=== PATIENT | female | born 1995 | race Caucasian/White ===

== ENCOUNTER 2018-06-09 11:46 | Inpatient (IN) | payer OTHER ==
[2018-06-09] MEDS ORDERED: Mouth Piece, Nicotine* 1 EACH CARTRIDGE INH PRN (11:58)
[2018-06-09] MEDS ORDERED: Nicotine Inhaler* 10 MG AMP INH PRN ×2 (11:58→14:03)
--- NOTE | 2018-06-09 11:58 | ED ---
Psychiatric Complaint - HPI Summary HPI Summary: This pt is a 23 y/o female [facility] c/o worsening anxiety and depression since 1 month ago. Pt reports "I just have a lot of going on." Pt notes she stopped taking her medications within the last week because she read the side effect were increased depression. Her medications were Trazodone and Citalapram, both prescribed by her PCP. Pt denies SI or HI thoughts/plan. Pt states she has not been sleeping much during the night, just a few hours. Additionally reports decreased appetite and weight loss. Pt has a job and has 2 children. Mom states "she doesn't enjoy her kids anymore. " Denies any other PMHx. There are no other medications she takes. Pt denies tobacco and alcohol use, but admits to using meth a couple of weeks ago. - History Of Current Complaint Chief Complaint: EDMentalHealth Hx Obtained From: Patient, Family/Lead Radiologic Technologist - Mother Onset/Duration: Lasting Weeks, Still Present Timing: Weeks Severity Currently: Severe Character: Depressed, Anxious Aggravating Factor(s): Recent Stress, Medication Non-compliance Alleviating Factor(s): Nothing Associated Signs And Symptoms: Positive: Sleep Disturbance, Appetite Change Has Suicidal: Denies: Thoughts, With A Plan Has Homicidal: Denies: Thoughts, With A Plan Recent Stressor(s): "a lot going on" - Allergies/Home Medications Allergies/Adverse Reactions: Allergies Allergy/AdvReac Type Severity Reaction Status Date / Time Penicillins Allergy Hives Verified 06/09/18 11:50 Home Medications: Home Medications NK [No Home Medications Reported] 06/09/18 [History Confirmed 06/09/18] PMH/Surg Hx/FS Hx/Imm Hx Endocrine/Hematology History: Denies: Hx Diabetes Cardiovascular History: Denies: Hx Hypertension Psychiatric History: Reports: Hx Anxiety, Hx Depression - Surgical History Surgery Procedure, Year, and Place: none Infectious Disease History: No Infectious Disease History: Denies: Traveled Outside the [place] in Last 30 Days - Family History Known Family History: Positive: Cardiac Disease, Hypertension, Diabetes Family History: Maternal grandfather with lung CA. Maternal grandfather was smoker. Ovarian CA. Breast CA. Anxiety. - Social History Alcohol Use: None Substance Use Comment - Amount & Last Used: Used meth a couple of weeks ago. None since then. Smoking Status (MU): Never Smoked Tobacco Review of Systems Constitutional: Other - POS: sleep disturbance, weight loss Negative: Fever, Chills Cardiovascular: Negative Respiratory: Negative Gastrointestinal: Negative Positive: Anxious, Depressed. Negative: Other - SI or HI thoughts/plan All Other Systems Reviewed And Are Negative: Yes Physical Exam - Summary Physical Exam Summary: VITAL SIGNS: Reviewed. GENERAL: Patient is a well-developed and nourished female. Patient is not in any acute respiratory distress. HEAD AND FACE: No signs of trauma. No ecchymosis, hematomas or skull depressions. No sinus tenderness. EYES: PERRLA, EOMI x 2, No injected conjunctiva, no nystagmus. EARS: Hearing grossly intact. Ear canals and tympanic membranes are within normal limits. MOUTH: Oropharynx within normal limits. NECK: Supple, trachea is midline, no adenopathy, no JVD, no carotid bruit, no c- spine tenderness, neck with full ROM. CHEST: Symmetric, no tenderness at palpation LUNGS: Clear to auscultation bilaterally. No wheezing or crackles. CVS: Regular rate and rhythm, S1 and S2 present, no murmurs or gallops appreciated. ABDOMEN: Soft, non-tender. No signs of distention. No rebound, no guarding, and no masses palpated. Bowel sounds are normal. EXTREMITIES: FROM in all major joints, no edema, no cyanosis or clubbing. NEURO: Alert and oriented x 3. No acute neurological deficits. Speech is normal and follows commands. SKIN: Dry and warm PSYCH: crying, seems sad and depressed Triage Information Reviewed: Yes Vital Signs On Initial Exam: Initial Vitals Temp Pulse Resp BP Pulse Ox 97.8 F 90 18 113/79 100 06/09/18 11:48 06/09/18 11:48 06/09/18 11:48 06/09/18 11:48 06/09/18 11:48 Vital Signs Reviewed: Yes Diagnostics - Vital Signs Vital Signs Temp Pulse Resp BP Pulse Ox 06/09/18 11:48 97.8 F 90 18 113/79 100 - Laboratory Result Diagrams: 06/09/18 12:12 06/09/18 12:12 Lab Statement: Any lab studies that have been ordered have been reviewed, and results considered in the medical decision making process. Re-Evaluation - Re-Evaluation First Eval Re-Evaluation Time: 11:59 Comment: Pt is medically cleared. Course/Dx - Course Assessment/Plan: This pt is a 23 y/o female presenting [facility] c/o worsening anxiety and depression since 1 month ago. Pt reports "I just have a lot of going on." Pt notes she stopped taking her medications within the last week because she read the side effect were increased depression. Her medications were Trazodone and Citalapram, both prescribed by her PCP. Pt denies SI or HI thoughts/plan. Pt states she has not been sleeping much during the night, just a few hours. Additionally reports decreased appetite and weight loss. Pt has a job and has 2 children. Mom states "she doesn't enjoy her kids anymore.". Denies any other PMHx. There are no other medications she takes. Pt denies tobacco and alcohol use, but admits to using meth a couple of weeks ago. Blood work w/o a significant abnormality. She is medically cleared. She is awaiting for a MHE. Patient is hemodynamically stable and A+O x 3. Pt had a mental health evaluation and her case was reviewed by Dr. Cervantes, psychiatrist. Dr. Cervantes offered pt voluntary admission and pt agrees. Pt will be admitted to [facility] with diagnosis of unspecified depressive disorder. - Differential Dx/Clinical Impression Differential Diagnosis/HQI/PQRI: Positive: Anxiety, Depression, Homicidal Ideation, Suicidal Ideation Provider Diagnosis: Depressive disorder Discharge - Sign-Out/Discharge Documenting (check all that apply): Patient Departure - Admit to [facility] All imaging exams completed and their final reports reviewed: No Studies - Discharge Plan Condition: Stable Disposition: PSYCHIATRIC FACILITY-[facility] - Billing Disposition and Condition Condition: STABLE Disposition: Psychiatric Facility [facility] - Attestation Statements Document Initiated by Scribe: Yes Documenting Scribe: Nelida Brannon Provider For Whom Saraibdevin is Documenting (Include Credential): Wero Max MD Scribe Attestation: Nelida Herrrea scribed for Wero Max MD on 06/09/18 at 1824. Scribe Documentation Reviewed: Yes Provider Attestation: The documentation as recorded by the saraibeNelida accurately reflects the service I personally performed and the decisions made by me, Wero Max MD
[2018-06-09 12:26] LABS: ABS Basophils 0 10^3/ul (0-0.2); ABS Eosinophils 0.1 10^3/ul (0-0.6); ABS Lymphocytes 1.5 10^3/ul (1.0-4.8); ABS Monocytes 0.4 10^3/ul (0-0.8); ABS Neutrophils 5.6 10^3/ul (1.5-7.7); ABS Nucleated RBC 0 10^3/ul; Eosinophil % 0.8 % (0-6); Hematocrit 36 % (35-47); Lymphocyte % 19.7 % (25-47); Mean Corpuscular HGB Conc 33 g/dl (31-36); Mean Corpuscular Hemoglobin 29 pg (27-31); Mean Corpuscular Volume 88 fL (80-97); Mean Platelet Volume 8.8 um3 (7.4-10.4); Nucleated Red Blood Cells % 0; Platelet Count 265 10^3/ul (150-450); Red Blood Count 4.12 10^6/ul (4.00-5.40); Red Cell Distribution Width 15 % (10.5-15); White Blood Count 7.6 10^3/ul (3.5-10.8)
[2018-06-09 12:42] LABS: Urine Appearance Cloudy; Urine Blood Negative (Negative); Urine Color Amber; Urine Ketones Negative (Negative); Urine Protein 1+(30 mg/dL) (Negative); Urine Red Blood Cell 2+(6-10/hpf) (Absent); Urine Specific Gravity 1.025 (1.010-1.030); Urine Urobilinogen Negative (Negative); Urine White Blood Cell 2+(11-20/hpf) (Absent)
[2018-06-09 12:42] LABS: EGFR Non-African American 117.1 (>60)
[2018-06-09] MEDS ORDERED: Nicotine GUM* 2 MG PO PRN (14:03)
[2018-06-09] MEDS ORDERED: Al Hydrox/Mg Hydrox/Simet LIQ* 30 ML UDC PO PRN (14:03)
[2018-06-09] MEDS ORDERED: hydrOXYzine HCL TAB* 50 MG PO PRN (14:07)
--- NOTE | 2018-06-10 11:01 | PN ---
MHU: Group Therapy Note - Service Type Service Type: [id number] Group Psychotherapy - Cognitive Behavioral Group Therapy ( CBT):Patient was attentive and participatory in CBT programming this morning, and remained in good behavioral control. Patient expressed positive insights regarding relevant treatment interventions and goals.
--- NOTE | 2018-06-10 18:14 | HP ---
HISTORY AND PHYSICAL: DATE OF ADMISSION: 06/09/18 PROVIDER: Yvrose Martinez NP, in Psychiatry. SUPERVISING PHYSICIAN: Walter Cervantes MD * (DICTATED BY YVROSE MARTINEZ NP ) JUSTIFICATION FOR ADMISSION: The patient is in need of 24-hour supervision and care secondary to suicidal ideation CHIEF COMPLAINT: "There was so much going on that it all piled-up." HISTORY OF PRESENT ILLNESS: The patient is a 23-year-old single white female with a history of anxiety and depression, who arrives, brought in by her mom and is on a voluntary status following her calling her mother and stating that she was suicidal. Gilma states that in the last month she has gotten an IUD, the Mirena and she feels like her depression and anxiety have gotten worse since then. She had a miscarriage in December and her due date is in 9 weeks. She started seeing a man named Gregory 2 to 3 months ago and also when she was 13 years old and then he left her and she split up with her , Anuel, so she is having a hard time with all of that. She is very tired, but she is cannot sleep. She is very distressed that she cannot see her children as much as she wants to. She has got low energy. She had suicidal ideation, but she no longer does. PAST PSYCHIATRIC HISTORY: She was admitted a few weeks ago at [facility]. She was supposed to be admitted into [facility] in [place] for outpatient treatment, but she felt like she could not wait. She has no previous suicide attempts. There was one reported in the paperwork for her admission here about 2 weeks ago. The facts are that she had a small amount of methamphetamine, she thought it would do something to harm her since she does not ever take it and she was somewhat disappointed that it did not hurt her. She denies having access to weapons. She denies being violent. She states she has had many psychiatric medications. The only ones she can remember are citalopram and trazodone; citalopram she says does not work at all, trazodone helped her sleep, but she states the side effect for her was suicidal ideation. She states she tried many many agents through Lisandra Bustamante NP, in [place], [place]. She is not very interested in meds at this time. Although she does say that due to her trouble sleeping, she is like a "zombie." TRAUMA HISTORY: Gilma had a niece, who in her arms. This was at [facility]. This potential due date in 9 weeks is bringing up memories of her niece dying in her arms and that is traumatic for her. Traumatic brain injury: She denies any traumatic brain injuries. SUBSTANCE ABUSE HISTORY: She drinks occasionally. She vapes rather than smoking cigarettes. She smokes pot occasionally and she used methenamine once. PAST MEDICAL HISTORY: She denies any allergies, surgeries, physical medications. She does have 2 children, a girl who is 4 years old and a boy who is 2. FAMILY HISTORY: Mom has anxiety. She states it runs in her family and she thinks dad might have it, but she does not know. SOCIAL HISTORY: She lives in [place] alone. Her children live in [place] with the children's father. Gregory had lived with her for 2 to 3 months, but he decided to move out and that upset her greatly. She was to a man named Anuel with whom she had 2 children. The children are 4, her name is Raine and 2, a boy named, Luther. She is employed at [employer]. She works as a part of the crew part-time. She has never been in the . She does not have any legal problems. REVIEW OF SYSTEMS: The patient reports feeling fatigued. She denies shortness of breath, heat or cold intolerance, chest pain, or abdominal pain. She denies neurological symptoms. She denies fevers or changes in weight. PHYSICAL EXAMINATION VITAL SIGNS: On 06/09/18 at 1638, temperature was 98.8, pulse was 82, respirations 16, O2 sat on room air 96%, blood pressure 120/76. For further exam data, please see emergency department records. LABORATORY DATA: Most data are within normal limits. Exceptions include lymph percentage low at 19.7, glucose high at 102, total bilirubin high at 1.2, AST is low at 10. Urine having protein at 1+, leukocyte esterase 2+, urine white blood cells 2+, urine rbc's 2+, and urine squamous epithelial cells are present. She does not have a urinary tract infection, however. Her toxicology screen is negative for all substances. MENTAL STATUS EXAMINATION: This is a 23-year-old young woman, who appears her stated age. She is slim with brown hair. She is cooperative and tearful. She is reasonably calm. Her speech is of a normal rate, tone, and volume. She is dysthymic. She is tearful. Her thought processes are logical and goal directed. Her thought content is free of delusions. She is not homicidal or suicidal at this time. She is not having any hallucinations. Her insight is fair. Her judgment is fair. She is alert and oriented x3. DIAGNOSES: [place] I: Depressive disorder and anxiety disorder. [place] II: Deferred. IMPRESSION: Gilma is a 23-year-old woman, who is behaving perhaps younger than her stated age, who has suicidal ideation and could not wait for outpatient treatment to begin, so came into the hospital in search of help to reduce her chances of suicide attempt. PLAN: The patient is admitted to the adult behavioral health unit and placed on q.15-minute checks for her own safety. She is encouraged to participate in supportive milieu, individual, and group therapies. Estimated length of stay is 3 to 7 days. We will titrate medications to efficacy and monitor for mood and thought content if she chooses to use medications. Discharge planning will include family involvement and outpatient providers. In addition, Gilma plans to go to [place] to see her father at her discharge. YVROSE MARTINEZ, LUKE [id number]/[facility] #: [id number] JACI
[2018-06-11] MEDS: Acetaminophen TAB* 325 MG PO PRN (08:59)
--- NOTE | 2018-06-11 15:59 | PN ---
Subjective - Subjective Date of Service: 06/11/18 Service Type: 83477 Hosp care 15 min low complexity Subjective: Keenan was initially wanting to be discharged on Thursday, but decided that just one day was not enough. On the same day she was dissatisfied with her accommodations, wanting her Fitbit and her makeup. She is getting along well with peers and states she is hopeful for a positive experience over the weekend. She demonstrates some immaturity in her desire to make friends immediately and need to be reassured that her decisions are reasonable. Objective - Appearance Appearance: Healthy Appearing Dysmorphic Features: No Hygiene: Normal Grooming: Fairly Well Kept - Behavior Psychomotor Activities: Normal Exhibits Abnormal Movement: No - Attitude and Relatedness Attitude and Relatedness: Appropriate Eye Contact: Good - Speech Quality: Unpressured Latencies: Normal Quantity: Appropriate - Mood Patient's Decription of Mood: "Good" - Affect Observed Affect: Fair Affect Consistent with: Euthymia - Thought Process Patient's Thought Process: Coherent Thought Content: Yes Passive Wish, No Suicidal Planning, No Homicidal Ideation, No Paranoid Ideation - Sensorium Experiencing Hallucinations: No, Sensorium is Clear Type of Hallucinations: Visual: No, Auditory: No, Command: No - Level of Consciousness Level of Consciousness: Alert Orientation: Yes Intact, Yes Orientated to Time, Yes Orientated to Place, Yes Orientated to Person - Impulse Control Impulse Control: Tenuous - Insight and Judgement Insight and Judgement: Fair - Group Participation Particating in Group Activities: Yes - Additional Observations Comments: Pleasant 23-year-old who is observed on the unit with other patients interacting well. She is not suicidal at this time and states she has much to live for. Assessment - Assessment Merits Inpatient Hospitalization: For Immediate Safety, For Stabilization, For Discharge Planning Inpatient DSM-V Dx: F32.9 Clinical Impression: 23-y.o. woman with a history of having tried using methamphetamine as an overdose who comes to the hospital in distress regarding a breakup with her boyfriend of a few months. MHU: Problem List - Patient Problems (1) Adjustment disorder Status: Acute Code(s): F43.20 - ADJUSTMENT DISORDER, UNSPECIFIED SNOMED Code (s): 82211465 (2) Major depressive disorder Status: Acute Code(s): F32.9 - MAJOR DEPRESSIVE DISORDER, SINGLE EPISODE, UNSPECIFIED SNOMED Code(s): 357400641 Plan - Plan Treatment Plan: Name: KEENAN PATTERSON Birthdate: 1995 [id number] Continued Medication Management: Consider Medication Medications: Current Medications Acetaminophen (Tylenol Tab*) 650 mg PO Q4H PRN PRN Reason: for pain; or Temp >101 F Last Admin: 06/11/18 08:59 Dose: 650 mg Al Hydrox/Mg Hydrox/Simethicone (Maalox Plus*) 30 ml PO Q4H PRN PRN Reason: INDIGESTION Hydroxyzine HCl (Atarax Tab*) 50 mg PO Q6H PRN PRN Reason: ANXIETY Hydroxyzine HCl (Atarax Tab*) 50 mg PO BEDTIME OSMIN Nicotine (Nicotine Inhaler*) 10 mg INH Q2H PRN PRN Reason: CRAVING Nicotine Polacrilex (Nicotine Gum*) 2 mg PO Q2H PRN PRN Reason: CRAVING - Discharge Plan Discharge Plan: Outpatient Follow Up Additional Comments: Keenan is on track to be discharged Thursday for treatment outpatient. She has chosen not to take medication at this time and acknowledges that she'll feel better soon based on psychosocial stressors being reduced.
[2018-06-11] MEDS: hydrOXYzine HCL TAB* 50 MG PO SCH (21:38)
--- NOTE | 2018-06-12 15:39 | PN ---
Subjective - Subjective Date of Service: 06/12/18 Service Type: 33726 Hosp care 15 min low complexity Subjective: Keenan is seen in weekend coverage for NPP, Yvrose Martinez. The patient is in bed, but awake and responsive. She reports being in good spirits and having improved here in the hospital. She inquires about whether Thursday is indeed her target discharge date, indicating that the unit SW team informed her mother that it would likely be later in the week. "Do I need medicine?" she asks. It' s my understanding that she declined medications in favor of psychosocial treatment, to which she agrees, saying "Yeah, I think if I just work on my life in general things will get better." She continues to deny SI. Objective - Appearance Appearance: Well Developed/Nourished Dysmorphic Features: No Hygiene: Normal Grooming: Well Kept - Behavior Psychomotor Activities: Normal Exhibits Abnormal Movement: No - Attitude and Relatedness Attitude and Relatedness: Cooperative Eye Contact: Good - Speech Quality: Unpressured Latencies: Normal Quantity: Appropriate - Mood Patient's Decription of Mood: "Good" - Affect Observed Affect: Good Affect Consistent with: Euthymia - Thought Process Patient's Thought Process: Coherent Thought Content: No Passive Wish, No Suicidal Planning, No Homicidal Ideation, No Paranoid Ideation - Sensorium Experiencing Hallucinations: No, Sensorium is Clear Type of Hallucinations: Visual: No, Auditory: No, Command: No - Level of Consciousness Level of Consciousness: Alert Orientation: Yes Intact, Yes Orientated to Time, Yes Orientated to Place, Yes Orientated to Person - Impulse Control Impulse Control: Tenuous - Insight and Judgement Insight and Judgement: Fair - Group Participation Particating in Group Activities: Yes - Medication Management Medication Management Adherence: No Assessment - Assessment Merits Inpatient Hospitalization: Consolidate Improvements, Pending Safe DC Plan Inpatient DSM-V Dx: F32.9 Clinical Impression: 23 y.o. , white female with a history of depression arrives on a voluntary basis, accompanied by her mother, complaining of depressed mood and having recently attempted suicide by overdosing on methamphetamine. Plan - Plan Treatment Plan: Name: KEENAN PATTERSON Birthdate: 1995 [id number] Patient has improved with conservation milieu therapy. Pending likely discharge early this upcoming week. Continued Medication Management: Consider Medication Medications: Current Medications Acetaminophen (Tylenol Tab*) 650 mg PO Q4H PRN PRN Reason: for pain; or Temp >101 F Last Admin: 06/11/18 08:59 Dose: 650 mg Al Hydrox/Mg Hydrox/Simethicone (Maalox Plus*) 30 ml PO Q4H PRN PRN Reason: INDIGESTION Hydroxyzine HCl (Atarax Tab*) 50 mg PO Q6H PRN PRN Reason: ANXIETY Hydroxyzine HCl (Atarax Tab*) 50 mg PO BEDTIME [facility] Last Admin: 06/11/18 21:38 Dose: 50 mg Nicotine (Nicotine Inhaler*) 10 mg INH Q2H PRN PRN Reason: CRAVING Nicotine Polacrilex (Nicotine Gum*) 2 mg PO Q2H PRN PRN Reason: CRAVING - Discharge Plan Discharge Plan: Inpatient Hospitalization Lab Results - Lab Results Lab Results: 06/10/18 06/10/18 08:27 08:27 Hemoglobin A1c 5.3 Triglycerides 51 Cholesterol 98 LDL Cholesterol 51 HDL Cholesterol 37.2
[2018-06-12] MEDS: hydrOXYzine HCL TAB* 50 MG PO SCH (21:48)
[2018-06-13] MEDS ORDERED: Mouth Piece, Nicotine* 1 EACH CARTRIDGE ONE (15:58)
[2018-06-13] MEDS: Acetaminophen TAB* 325 MG PO PRN (16:46)
[2018-06-13] MEDS: hydrOXYzine HCL TAB* 50 MG PO SCH (22:28)
[2018-06-14 09:02] VITALS: BP 105/72
--- NOTE | 2018-06-15 07:38 | DS ---
CC: [facility]. DISCHARGE SUMMARY: DATE OF ADMISSION: 06/09/18. DATE OF DISCHARGE: 06/14/18. PROVIDER: Yvrose Martinez NP in Psychiatry. SUPERVISING PHYSICIAN: Walter Cervantes MD. DIAGNOSES: [place] I: Major depressive disorder and adjustment disorder. [place] II: Cluster B traits. CONDITION AT THE TIME OF DISCHARGE: Gilma is improved. Psychiatrically cleared. She is stable. She participated in groups and was very social with peers. Her family is agreeable to discharge. She has done well here psychiatrically. She declined to start medications. She will attend [facility]. MENTAL STATUS EXAM: At the time of discharge, Gilma is calm, cooperative and makes good eye contact. She is alert and oriented x3. Her grooming is adequate , her speech pace is normal and her thought processes are logical. She is not psychotic or delusional. She denies AH, VH, SI, and HI. Gilma's insight is fair. Her judgment is fair. She is willing to follow up and is urged to seek therapy. DISCHARGE INSTRUCTIONS TO THE PATIENT: A: Medications: None. B: Diet is regular. C: Activities as tolerated. Gilma is a smoker, but she has declined a referral to the [facility] Smokers' Quitline at this time. If she decides to access this free service in the future, she can contact the Quitline at [phone]. There are no studies pending at the time of discharge. D: Followup care. She has appointments at [facility] on 06/15/18 at 9 a.m. E: Substance abuse followup: Not indicated. HOSPITAL COURSE: Part A: Chief complaint: "There was so much going on that it all piled up." The patient is a 23-year-old single white female with a history of anxiety and depression who arrives brought in by her mom and on a voluntary status, following her calling her mother and stating that she was suicidal. She had tried methamphetamine two weeks ago in an attempt to end her life. Gilma states during the last month she has gotten an IUD the Mirena and she feels like her depression and anxiety have gotten worse since then. She had a miscarriage in December and her due date is in 9 weeks. She also started seeing a man named Gregory 2 to 3 months ago and also when she was 13-years' old and then he left her. She is also split up with her , Anuel, so she is having a hard time with all of these things. She is very tired but she cannot sleep. She is very distressed that she cannot see her children as much as she wants to. She has low energy. She had suicidal ideation but she no longer does. Part B: Psychiatric treatment was rendered. Gilma was admitted to the adult behavioral unit and placed on 15 minutes check for safety, which were increased to 30-minute checks and she received more privileges. Gilma did well on the unit, went to groups, she interacted with her peers very well. She did not want medications. She stated she has tried them in the past and she would only take one if I could guarantee that it would work. As I could not do that, that was not the route that we chose to take. We did get information from her outpatient provider Lisandra Bustamante. She has tried Cymbalta, BuSpar, Lexapro, and sertraline in the past. She states none of these "did anything for me." She is not on an antipsychotic. She is not on any meds at all. We did not meet with her family, but she was in close contact with her mother and her ex-. We were going to discharge her on Thursday, but she stated she did not think one day was enough to be here. When I met with her again on Thursday, she was very eager to go. She had very little to say about what she had accomplished over the weekend, but she was euthymic and pleasant to talk to. She is improved. She is no longer suicidal. Her energy is increased. She is not having suicidal thoughts. She appears interested in the future and is quite eager to see her children again. YVROSE MARTINEZ, [place] [id number]/[facility] #: [id number]
== END 2018-06-14 12:30 | disposition home or self-care (01) | DRG 754 ==
LOC: ED 11:46 → BSU 14:04
PROVIDERS: ADMIT Psychiatry & Neurology Psychiatry; ATTEND Psychiatry & Neurology Psychiatry
DX: F32.9 Major depressive disorder, single episode, unspecified (principal); R45.851 Suicidal ideations; F43.20 Adjustment disorder, unspecified; F17.290 Nicotine dependence, other tobacco product, uncomplicated; Z81.8 Family history of other mental and behavioral disorders
CPT/HCPCS: 36415; 80053; 80061; 80307; 80320; 80329; 81003; 81015; 83036; 84443; 85025; 87086; 90853; 99222; 99231; 99238; 99284; A9270-GY; G0480

== ENCOUNTER 2018-12-31 18:29 | Emergency (ER) | payer OTHER ==
[2018-12-31 19:04] VITALS: BP 110/73
[2018-12-31] MEDS ORDERED: Dexamethasone TAB* 4 MG PO ONE (19:13)
--- NOTE | 2018-12-31 19:13 | UC ---
FLU HPI - HPI Summary HPI Summary: 23-year-old female presents with 1 week worth of congestion and sore throat. She also presents with HER-2 children who have had similar symptoms. She denies smoking, fever or neck pain. She does have a drug use history. She denies any other contributory history. She had minor cough and congestion. - History of Current Complaint Chief Complaint: UCRespiratory Stated Complaint: SORE THROAT Time Seen by Provider: 12/31/18 18:33 Hx Obtained From: Patient Pain Intensity: 0 - Allergy/Home Medications Allergies/Adverse Reactions: Allergies Allergy/AdvReac Type Severity Reaction Status Date / Time Penicillins Allergy Hives Verified 12/31/18 19:04 PMH/Surg Hx/FS Hx/Imm Hx Other GI/ History: endometriosis - Surgical History Surgical History: Yes Surgery Procedure, Year, and Place: laparoscopy for endometriosis - Family History Known Family History: Positive: Cardiac Disease, Hypertension, Diabetes Family History: Maternal grandfather with lung CA. Maternal grandfather was smoker. Ovarian CA. Breast CA. Anxiety. - Social History Lives: With Family Alcohol Use: None Substance Use Type: None Substance Use Comment - Amount & Last Used: Used meth a couple of weeks ago. None since then. Smoking Status (MU): Never Smoked Tobacco - Immunization History Most Recent Influenza Vaccination: 03/2018- as per pt. statement Most Recent Pneumonia Vaccination: none Review of Systems All Other Systems Reviewed And Are Negative: Yes Constitutional: Positive: Chills, Fatigue. Negative: Fever Skin: Negative: Rash Eyes: Positive: Negative ENT: Positive: Sore Throat. Negative: Ear Ache, Nasal Discharge Respiratory: Positive: Cough. Negative: Shortness Of Breath Cardiovascular: Positive: Negative Gastrointestinal: Negative: Abdominal Pain Genitourinary: Negative: Dysuria Physical Exam Appearance: Well-Appearing, No Pain Distress, Well-Nourished, Other: - Disheveled Vital Signs: Initial Vital Signs Temp 98.7 F 12/31/18 18:59 Pulse 135 12/31/18 18:59 Resp 16 12/31/18 18:59 BP 110/73 12/31/18 18:59 Pulse Ox 98 12/31/18 18:59 Eyes: Positive: Conjunctiva Clear ENT: Positive: Pharyngeal erythema, TMs normal, Tonsillar exudate. Negative: Nasal congestion Neck: Positive: Nontender, No Lymphadenopathy Respiratory: Positive: Lungs clear Cardiovascular: Positive: Tachycardia Abdomen Description: Positive: Nontender, Soft Musculoskeletal: Positive: Strength Intact Neurological: Positive: Alert Psychological Exam: Normal Skin Exam: Normal Flu Course/Dx - Course Course Of Treatment: Lab Results 12/31/18 Range/Units 18:57 Group A Strep Rapid Negative (Negative) Rapid strep is negative. Likely postviral tonsillitis. Treated with steroid. Follow up primary care physician. - Differential Dx/Diagnosis Differential Diagnosis/HQI/PQRI: Influenza, Other - Strep, viral pharyngitis Provider Diagnosis: Acute pharyngitis Discharge - Sign-Out/Discharge Documenting (check all that apply): Patient Departure All imaging exams completed and their final reports reviewed: No Studies - Discharge Plan Condition: Improved Disposition: HOME Prescriptions: Dexamethasone TAB* [Decadron TAB*] 8 mg PO DAILY #8 tab Patient Education Materials: Pharyngitis (ED) Referrals: Girish MICHELLE,Shilo Tariq [Primary Care Provider] - Additional Instructions: Drink plenty of fluids. Tylenol, ibuprofen as needed for discomfort. Call your doctor in Thursday to schedule prompt follow-up. Return if worse, unable to keep down fluids, high fever, new symptoms or other concerns. - Billing Disposition and Condition Condition: IMPROVED Disposition: Home
== END 2018-12-31 19:25 | disposition home or self-care (01) ==
LOC: UCEAST 18:29
DX: J02.9 Acute pharyngitis, unspecified (principal); R05 Cough; R68.83 Chills (without fever); R53.83 Other fatigue; R00.0 Tachycardia, unspecified; Z88.0 Allergy status to penicillin
CPT/HCPCS: 87651; 99212; G0463; J8540

== ENCOUNTER → 2019-01-06 12:51 | Emergency (ER) | payer OTHER ==
[~2019-01-06 12:51] MED LIST: Albuterol/Ipratropium NEB.SOL* Albuterol 2.5 MG/Ipratropium 0.5 MG 3 ML INH ONE; DOXYcycline CAP(*) 100 MG PO ONE; predniSONE TAB* 20 MG PO ONE
--- NOTE | 2019-01-06 13:14 | ED ---
Respiratory - HPI Summary HPI Summary: 23-year-old female presents with sore for throat for the past 3 weeks. She states that symptoms have been getting better and then worse. States she now has sinus congestion and increased pressure in her head. She admits to headache. States she was seen at the walk-in 3 times. She states she started on acid reflux medication and allergy medication. was seen again and started on inhaler and steroids. had negative strept. states that has developed a cough and has lost voice. admits to sob but no chest pain. no abdominal pain, vomiting but does admits to nausea. she states has back pain in thoracic back and feels bruised. no urinary symptoms. no loss of bowel or bladder or saddle anaesthesia. - History of Current Complaint Chief Complaint: EDGeneral Stated Complaint: GENERAL ILLNESS PER PT Time Seen by Provider: 01/06/19 13:00 Pain Intensity: 5 - Allergy/Home Medications Allergies/Adverse Reactions: Allergies Allergy/AdvReac Type Severity Reaction Status Date / Time Penicillins Allergy Hives Verified 01/06/19 12:57 PMH/Surg Hx/FS Hx/Imm Hx Endocrine/Hematology History: Reports: Hx Anemia Denies: Hx Diabetes Cardiovascular History: Denies: Hx Hypertension - pre-hypertension (136/79) GI History: Reports: Hx Irritable Bowel Sensory History: Reports: Hx Contacts or Glasses Denies: Hx Hearing Aid Opthamlomology History: Reports: Hx Contacts or Glasses Neurological History: Reports: Hx Headaches - pt. periodically experiences, Hx Migraine - pt. periodically experiences Psychiatric History: Reports: Hx Anxiety, Hx Attention Deficit Hyperactivity Disorder, Hx Depression, Hx Post Traumatic Stress Disorder, Hx Suicide Attempt Denies: Hx Eating Disorder, Hx of Violent Episodes Against Others - Surgical History Surgery Procedure, Year, and Place: laparoscopy for endometriosis Infectious Disease History: No Infectious Disease History: Denies: Traveled Outside the [place] in Last 30 Days - Family History Known Family History: Positive: Cardiac Disease, Hypertension, Diabetes Family History: Maternal grandfather with lung CA. Maternal grandfather was smoker. Ovarian CA. Breast CA. Anxiety. - Social History Alcohol Use: None Substance Use Type: Reports: None Substance Use Comment - Amount & Last Used: Used meth a couple of weeks ago. None since then. Smoking Status (MU): Never Smoked Tobacco Review of Systems Negative: Fever Positive: Sore Throat, Nasal Discharge Negative: Chest Pain Positive: Shortness Of Breath, Cough All Other Systems Reviewed And Are Negative: Yes Physical Exam Triage Information Reviewed: Yes Vital Signs On Initial Exam: Initial Vitals Temp Pulse Resp BP Pulse Ox 98 F 89 18 129/96 99 01/06/19 12:54 01/06/19 12:54 01/06/19 12:54 01/06/19 12:54 01/06/19 12:54 Vital Signs Reviewed: Yes Appearance: Positive: Well-Appearing Skin: Positive: Warm, Dry Head/Face: Positive: Normal Head/Face Inspection Eyes: Positive: Normal, EOMI, ROSIE, Conjunctiva Clear ENT: Positive: Pharyngeal erythema, TMs normal, Sinus tenderness, Uvula midline , Other - soft palate symmetric, voice is hoarse. Negative: Trismus, Muffled voice Respiratory/Lung Sounds: Positive: Clear to Auscultation, Breath Sounds Present Cardiovascular: Positive: Normal, RRR Abdomen Description: Positive: Nontender, Soft Bowel Sounds: Positive: Present Musculoskeletal: Positive: Normal Neurological: Positive: Normal Psychiatric: Positive: Normal Diagnostics - Vital Signs Vital Signs Temp Pulse Resp BP Pulse Ox 01/06/19 12:54 98 F 89 18 129/96 99 - Laboratory Result Diagrams: 01/06/19 13:15 01/06/19 13:15 Lab Statement: Any lab studies that have been ordered have been reviewed, and results considered in the medical decision making process. - Radiology chest Radiology Interpretation Completed By: Radiologist Summary of Radiographic Findings: no acute process Disposition - Course Course Of Treatment: 23-year-old female presents with sore for throat for the past 3 weeks. She states that symptoms have been getting better and then worse. States she now has sinus congestion and increased pressure in her head. She admits to headache. States she was seen at the walk-in 3 times. She states she started on acid reflux medication and allergy medication. was seen again and started on inhaler and steroids. had negative strept. states that has developed a cough and has lost voice. admits to sob but no chest pain. no abdominal pain, vomiting but does admits to nausea. on exam has erythema to pharynx. Uvula midline. Soft palate symmetric. lungs wheezing noted. wbc 15. CRP elevated. d-dimer negative Chest x-ray shows no acute finding. will treat as sinusitis with augmentin and flonase and bronchitis will steroid. will give robitussin for cough. told follow up with primary. patient understand and agrees with plan. - Differential Dx - Cardiopulmonary Differential Diagnoses - Cardiopulmonary: Bronchitis, Laryngitis, Lower Resp Infection - Diagnoses Provider Diagnoses: Sinusitis, Bronchitis Discharge - Sign-Out/Discharge Documenting (check all that apply): Patient Departure Patient Received Moderate/Deep Sedation with Procedure: No - Discharge Plan Condition: Good Disposition: HOME Prescriptions: DOXYcycline CAP(*) [DOXYcycline 100MG CAP(*)] 100 mg PO BID #19 cap Fluticasone NASAL SPRAY 50MCG* [Flonase NASAL SPRAY 50MCG*] 2 spray BOTH NARES DAILY #1 btl guaiFENesin/CODIEN 100MG-10MG* [Robitussin AC 100Mg-10Mg*] 5 ml PO Q6H PRN #100 ml MDD 20ml PRN Reason: Cough predniSONE TAB* [Deltasone TAB*] 50 mg PO DAILY #4 tab Patient Education Materials: Acute Bronchitis (ED) Referrals: Girish MICHELLE,Shilo Tariq [Primary Care Provider] - Additional Instructions: Take cough medication 5ml (1 teaspoon) every 6 hours as needed cough Use intranasal steroid one spray each nostril twice a day Use inhaler up to two puffs every 4-6 hours for cough Take steroid once a day starting tomorrow take doxycycline twice a day for 10 days first dose given in ED, take with food , will make sensitive to the sun Use saline in the nose for nasal congestion, can also get Sudafed at pharmacy counter for nasal congestion Take Tylenol or ibuprofen for pain every 6 hours Follow up with primary Return to ED if develop any new or worsening symptoms - Billing Disposition and Condition Condition: GOOD Disposition: Home
[2019-01-06 13:29] LABS: ABS Basophils 0.1 10^3/ul (0-0.2); ABS Eosinophils 0.6 10^3/ul (0-0.6); ABS Lymphocytes 3.3 10^3/ul (1.0-4.8); ABS Monocytes 1.4 10^3/ul (0-0.8); ABS Neutrophils 10.3 10^3/ul (1.5-7.7); Hematocrit 35 % (35-47); Hemoglobin 11.4 g/dL (12.0-16.0); Mean Corpuscular HGB Conc 33 g/dL (31-36); Mean Corpuscular Hemoglobin 29 pg (27-31); Mean Corpuscular Volume 89 fL (80-97); Mean Platelet Volume 8.3 fL (7.4-10.4); Nucleated Red Blood Cells % 0.1; Platelet Count 319 10^3/uL (150-450); Red Blood Count 3.92 10^6 /uL (3.70-4.87); Red Cell Distribution Width 13 % (10.5-15); White Blood Count 15.6 10^3/uL (3.5-10.8)
[2019-01-06 13:49] LABS: ALT 15 U/L (7-52); AST 12 U/L (13-39); Albumin 3.6 g/dL (3.2-5.2); Albumin/Globulin Ratio 1.5 (1-3); Alkaline Phosphatase 70 U/L (34-104); Anion Gap 8 mmol/L (2-11); BUN/Creatinine Ratio 13.8 (8-20); Blood Urea Nitrogen 8 mg/dL (6-24); C Reactive Protein 15.46 mg/L (<8.01); CO2 Carbon Dioxide 28 mmol/L (22-32); Calcium 8.5 mg/dL (8.6-10.3); Chloride 102 mmol/L (101-111); EGFR African American 155.9 (>60); EGFR Non-African American 128.8 (>60); Globulin 2.4 g/dL (2-4); Glucose 94 mg/dL (70-100); Potassium 3.8 mmol/L (3.5-5.0); Sodium 138 mmol/L (135-145)
[2019-01-06 13:55] LABS: HCG Pregnancy < 0.60 mIU/mL
[2019-01-06 15:31] VITALS: BP 133/87
[2019-01-07 15:19] LABS: EBV Capsid Ag IgG Ab Positive (Negative); EBV Capsid Ag IgM Ab Negative (Negative); Epstein-Barr Nuclear Antigen Positive (Negative)
== END | disposition home or self-care (01) ==
LOC: ED 12:51
DX: J01.90 Acute sinusitis, unspecified (principal); J20.9 Acute bronchitis, unspecified; D64.9 Anemia, unspecified; F41.9 Anxiety disorder, unspecified; F90.9 Attention-deficit hyperactivity disorder, unspecified type; F32.9 Major depressive disorder, single episode, unspecified; Z91.5 Personal history of self-harm; Z88.0 Allergy status to penicillin
CPT/HCPCS: 36415; 71046; 80053; 84702; 85025; 85379; 86140; 86308; 86664; 86665; 99283; A9270-GY; J7512

== ENCOUNTER 2019-02-06 20:08 | Emergency (ER) | payer OTHER ==
--- NOTE | 2019-02-06 21:03 | ED ---
Psychiatric Complaint - HPI Summary HPI Summary: Patient is a 23 y/o F presenting to ED via police on 941 for mental health evaluation. In the room, patient denies SI/HI and denies saying that she wanted to kill herself. However, the patient does endorse having text-messaged her sister stating that she wanted to . Sister called 911, patient was found driving in some back roads at a high rate of speed. fourth officer went through the patient's cell phone messages after the patient voluntarily gave her phone to the chief of police to go through. fourth officer confirms that she had only stated that she wanted to to her sister. Patient notes that she has "a lot going on". Patient denies taking her medications currently, stating that she stopped taking them two weeks ago. She claims that she was getting allergic reactions from them. PMHx of anxiety, ADHD, depression, PTSD, suicide attempt. Home medications and allergies are reviewed. - History Of Current Complaint Chief Complaint: EDMentalHealth Time Seen by Provider: 02/06/19 20:21 Hx Obtained From: Patient Onset/Duration: Still Present Timing: Constant Character: Depressed Aggravating Factor(s): Recent Stress Alleviating Factor(s): Nothing Associated Signs And Symptoms: Positive: Negative Has Suicidal: Denies: Thoughts Has Homicidal: Denies: Thoughts - Allergies/Home Medications Allergies/Adverse Reactions: Allergies Allergy/AdvReac Type Severity Reaction Status Date / Time Penicillins Allergy Hives Verified 02/06/19 20:13 PMH/Surg Hx/FS Hx/Imm Hx Endocrine/Hematology History: Reports: Hx Anemia Denies: Hx Diabetes Cardiovascular History: Denies: Hx Hypertension - pre-hypertension (136/79) Respiratory History: Denies: Hx Asthma, Hx Chronic Obstructive Pulmonary Disease (COPD) GI History: Reports: Hx Irritable Bowel Sensory History: Reports: Hx Contacts or Glasses Denies: Hx Hearing Aid Opthamlomology History: Reports: Hx Contacts or Glasses Neurological History: Reports: Hx Headaches - pt. periodically experiences, Hx Migraine - pt. periodically experiences Psychiatric History: Reports: Hx Anxiety, Hx Attention Deficit Hyperactivity Disorder, Hx Depression, Hx Post Traumatic Stress Disorder, Hx Suicide Attempt Denies: Hx Eating Disorder, Hx of Violent Episodes Against Others - Surgical History Surgery Procedure, Year, and Place: laparoscopy for endometriosis Infectious Disease History: No Infectious Disease History: Denies: Traveled Outside the [place] in Last 30 Days - Family History Known Family History: Positive: Cardiac Disease, Hypertension, Diabetes Family History: Maternal grandfather with lung CA. Maternal grandfather was smoker. Ovarian CA. Breast CA. Anxiety. - Social History Alcohol Use: None Substance Use Type: Reports: None Substance Use Comment - Amount & Last Used: Used meth a couple of weeks ago. None since then. Smoking Status (MU): Never Smoked Tobacco Review of Systems Negative: Fever - on vitals, temp is 98.5 F Psychological: Other - denies SI/HI, but reports saying that she wants to All Other Systems Reviewed And Are Negative: Yes Physical Exam - Summary Physical Exam Summary: VITAL SIGNS: Reviewed. GENERAL: Patient is a well-developed and nourished female who is lying comfortable in the stretcher. Patient is not in any acute respiratory distress. HEAD AND FACE: No signs of trauma. No ecchymosis, hematomas or skull depressions. No sinus tenderness. EYES: PERRLA, EOMI x 2, No injected conjunctiva, no nystagmus. EARS: Hearing grossly intact. Ear canals and tympanic membranes are within normal limits. MOUTH: Oropharynx within normal limits. NECK: Supple, trachea is midline, no adenopathy, no JVD, no carotid bruit, no c- spine tenderness, neck with full ROM CHEST: Symmetric, no tenderness at palpation LUNGS: Clear to auscultation bilaterally. No wheezing or crackles. CVS: Regular rate and rhythm, S1 and S2 present, no murmurs or gallops appreciated. ABDOMEN: Soft, non-tender. No signs of distention. No rebound no guarding, and no masses palpated. Bowel sounds are normal. EXTREMITIES: FROM in all major joints, no edema, no cyanosis or clubbing. NEURO: Alert and oriented x 3. No acute neurological deficits. Speech is normal and follows commands. SKIN: Dry and warm Triage Information Reviewed: Yes Vital Signs On Initial Exam: Initial Vitals Temp Pulse Resp BP Pulse Ox 98.5 F 101 16 115/88 98 02/06/19 20:11 02/06/19 20:11 02/06/19 20:11 02/06/19 20:11 02/06/19 20:11 Vital Signs Reviewed: Yes Diagnostics - Vital Signs Vital Signs Temp Pulse Resp BP Pulse Ox 02/06/19 20:11 98.5 F 101 16 115/88 98 - Laboratory Result Diagrams: 02/06/19 20:55 02/06/19 20:55 Lab Statement: Any lab studies that have been ordered have been reviewed, and results considered in the medical decision making process. Re-Evaluation - Re-Evaluation First Eval Re-Evaluation Time: 21:42 Comment: Patient medically cleared for MHE. Second Eval Re-Evaluation Time: 22:17 Comment: Patient has complaints of MOORE, given 975 mg Ibuprofen. Course/Dx - Course Course Of Treatment: Patient is a 23 y/o F presenting to ED via police on 941 for mental health evaluation. In the room, patient denies SI/HI and denies saying that she wanted to kill herself. However, the patient does endorse having text-messaged her sister stating that she wanted to . Sister called 911, patient was found driving in some back roads at a high rate of speed. fourth officer went through the patient's cell phone messages after the patient voluntarily gave her phone to the chief of police to go through. fourth officer confirms that she had only stated that she wanted to to her sister. Patient notes that she has "a lot going on". Patient denies taking her medications currently, stating that she stopped taking them two weeks ago. She claims that she was getting allergic reactions from them. PMHx of anxiety, ADHD, depression , PTSD, suicide attempt. Physical exam is unremarkable. Labs showed WBC 12.4, absolute neuts 10.1, AST 12, TSH 0.90, Beta HCG < 0.60. UA showed 1+ protein, 2 + ketones, 1+ blood, 3+ leukocyte esterase, 3+ WBC, 2+ RBC, squamous eptih cells present, 1+ bacteria. Tox screen negative. Patient medically cleared for MHE. Patient later had complaints of MOORE, given 975 mg Ibuprofen. Mental health worker Willian reports that the patient's case was reviewed by Dr. Bhandari, patient will be admitted. However, Willian later reported that the patient and the patient's mother discussed admission, mother states that she can supervise the patient at home 09/03 and that they will follow up with a therapy appointment in a few days. Dr. Bhandari is agreeable with discharge to home. - Differential Dx/Clinical Impression Provider Diagnosis: Impulse control disorder - Physician Notifications Discussed Care Of Patient With: Anali Bhandari Time Discussed With Above Provider: 22:36 Instructed by Provider To: Other - Mental health worker Willian reports that the patient's case was reviewed by Dr. Bhandari, patient will be admitted/ [id number] - Willian reports that the patient and the patient's mother discussed admission, mother states that she can supervise the patient at home 09/03 and that they will follow up with a therapy appointment in a few days. Dr. Bhandari is agreeable with discharge to home. Discharge - Sign-Out/Discharge Documenting (check all that apply): Patient Departure - discharge Patient Received Moderate/Deep Sedation with Procedure: No - Discharge Plan Condition: Stable Disposition: HOME Patient Education Materials: Depression (ED), Suicide Prevention (ED) Referrals: tiffany madsen [Other] (please call tomorrow to schedule your appointment) [facility] [Outside] (please follow up tomorrow to schedule an appt ) No Primary Care Phys,NOPCP [Primary Care Provider] - - Attestation Statements Document Initiated by Scribe: Yes Documenting Scribe: ALEXANDREA DOLAN Provider For Whom Scribe is Documenting (Include Credential): COURTNEY MARRUFO MD Scribe Attestation: IALEXANDREA, scribed for COURTNEY MARRUFO MD on 02/07/19 at 0101. Status of Scribe Document: Ready
[2019-02-06 21:08] LABS: ABS Lymphocytes 1.6 10^3/ul (1.0-4.8); ABS Monocytes 0.6 10^3/ul (0-0.8); ABS Neutrophils 10.1 10^3/ul (1.5-7.7); Eosinophil % 0.2 %; Hematocrit 38 % (35-47); Hemoglobin 12.5 g/dL (12.0-16.0); Mean Corpuscular HGB Conc 33 g/dL (31-36); Mean Corpuscular Hemoglobin 30 pg (27-31); Mean Corpuscular Volume 89 fL (80-97); Mean Platelet Volume 8.8 fL (7.4-10.4); Nucleated Red Blood Cells % 0.1; Platelet Count 275 10^3/uL (150-450); Red Blood Count 4.21 10^6 /uL (3.70-4.87); Red Cell Distribution Width 14 % (10-15); White Blood Count 12.4 10^3/uL (3.5-10.8)
[2019-02-06 21:24] LABS: Urine Appearance Cloudy; Urine Bacteria 1+ (Absent); Urine Bilirubin Negative (Negative); Urine Blood 1+ (Negative); Urine Color Yellow; Urine Glucose Negative (Negative); Urine Ketones 2+ (Negative); Urine Nitrite Negative (Negative); Urine Protein 1+(30 mg/dL) (Negative); Urine Red Blood Cell 2+(6-10/hpf) (Absent); Urine Specific Gravity 1.026 (1.010-1.030); Urine Squamous Epithelial Cell Present (Absent); Urine Urobilinogen Negative (Negative); Urine White Blood Cell 3+(>20/hpf) (Absent)
[2019-02-06 21:25] LABS: Urine Benzodiazepine Screen None Detected (None Detect); Urine Opiates Screen None Detected (None Detect)
[2019-02-06 21:26] LABS: ALT 11 U/L (7-52); AST 12 U/L (13-39); Albumin 4.3 g/dL (3.2-5.2); Albumin/Globulin Ratio 1.8 (1-3); Alkaline Phosphatase 55 U/L (34-104); Anion Gap 8 mmol/L (2-11); Blood Urea Nitrogen 9 mg/dL (6-24); CO2 Carbon Dioxide 23 mmol/L (22-32); Calcium 9.3 mg/dL (8.6-10.3); Chloride 109 mmol/L (101-111); EGFR African American 149.9 (>60); EGFR Non-African American 123.9 (>60); Globulin 2.4 g/dL (2-4); Glucose 92 mg/dL (70-100); Sodium 140 mmol/L (135-145); Total Protein 6.7 g/dL (6.4-8.9)
[2019-02-06 21:32] LABS: HCG Pregnancy < 0.60 mIU/mL
[2019-02-06 21:46] LABS: Acetaminophen < 15 mcg/mL; Alcohol < 10 mg/dL (<10); Salicylate < 2.50 mg/dL (<30)
[2019-02-06] MEDS ORDERED: Acetaminophen TAB* 325 MG PO ONE (21:58)
[2019-02-06 23:08] VITALS: BP 111/70
== END 2019-02-06 23:07 | disposition home or self-care (01) ==
LOC: ED 20:08
DX: F63.9 Impulse disorder, unspecified (principal); Z79.899 Other long term (current) drug therapy
CPT/HCPCS: 36415; 80053; 80307; 80320; 80329; 81003; 81015; 84443; 84702; 85025; 87086; 99285; A9270-GY; G0480